=== PATIENT | female | born 1930 | race Caucasian/White ===

== ENCOUNTER 2016-06-25 09:48 | Day surgery (SDC) | payer MEDICARE, OTHER ==
[~2016-06-25] VITALS: Ht 162.6 cm; Wt 69.0 kg
[~2016-06-25 09:48] MED LIST: HYDR25TA4 PO; LOSA100T3 PO; POTA20TA16 PO; Sodium Chloride LOK Flush 10 mL Syringe IV PRN; fentaNYL-PF 50 mCg/mL 2 mL Inj IVPUSH PRN
[2016-06-25 10:00] VITALS: BP 159/70; PULSE 72; RESP 16; O2SAT 95
[2016-06-25] MEDS: 0.9% Sodium Chloride 1,000 ML IV SCH ×2 (10:05→10:22)
[2016-06-25 11:10] VITALS: BP 115/49; PULSE 62; RESP 16; O2SAT 98
[2016-06-25 11:12] VITALS: BP 133/74; PULSE 67; RESP 16; O2SAT 100
--- NOTE | 2016-06-25 11:24 | ENDO ---
[address] [address] ENDOSCOPY PROCEDURE PATIENT: WILLIAM GARCÍA : 1930 MR#: [id number] ADMIT: 06/25/2016 JOB ID: [id number] DATE: 06/25/2016 PROCEDURE: Colonoscopy. INDICATIONS: Patient with a history of colon cancer and has had a colo-colo anastomosis in the sigmoid area. Previously, she had a stenosis there that we dilated, but despite the dilation, we were not able to pass the pediatric colonoscope. Therefore, at her prior colonoscopy, standard upper endoscope was then used. ASA CLASSIFICATION: II MALLAMPATI SCORE: 2 MEDICATIONS: Versed 4 mg, fentanyl 100 mcg. INSTRUMENTS USED: PCF-H190L, as well as a GIF-H180J. PREP QUALITY: Fair. PROCEDURE DETAILS: After informed consent was obtained, the patient was brought to the GI suite, where she was placed on oxygen via nasal cannula and monitored with continuous pulse oximeter, telemetry, and blood pressure monitoring. A time-out was performed. Then, she was placed in a left lateral decubitus position, and medications were administered for sedation. Digital rectal exam was performed which was unremarkable. The pediatric colonoscope was then inserted into the rectum and advanced to approximately 15 cm, where there was evidence of a colo-colo anastomosis. We met resistance at the anastomosis and was unable to advance the pediatric colonoscope. At this point, using TTS balloons, the anastomosis was dilated sequentially starting at 10 mm up to 13.5 mm. Following dilation to 13.5 mm, we then again attempted to traverse the anastomosis with the pediatric colonoscope. However, this was unsuccessful. At this point, I elected to use an upper endoscope to complete the colonoscopy. The upper endoscope was then inserted into the rectum and advanced without difficulty to the cecum, which was identified by the presence of the ileocecal valve and appendiceal orifice. Once the cecum was reached, the colonoscope was withdrawn back into the rectum as the mucosa and lumen were examined. In the rectum, retroflexion was performed. Following retroflexion, remaining air in the rectum was suctioned, and procedure was completed. FINDINGS: 1. In the ascending colon, there was an approximately 4-5 mm sessile polyp that was removed with a cold snare. 2. Anastomosis at approximately 15 cm that was dilated from 10 mm to 13.5 mm. IMPRESSION: 1. Ascending colon polyp. 2. Anastomotic stenosis. RECOMMENDATIONS: Follow up in GI clinic as needed. As patient has no complaints with regards to her anastomotic stenosis, will not pursue further dilation of the stenosis at this time. The patient knows to contact my office if she should began having symptoms. COMPLICATIONS: None. ESTIMATED BLOOD LOSS: Less than 5 mL.
--- NOTE | 2016-06-26 17:01 | PATH ---
SURGICAL PATHOLOGY Attending Physician:Howard Lucero CASE STATUS: Signed Out PATIENT NAME: WILLIAM GARCÍA PID: [id number] : 1930 DATE COLLECTED:06/25/2016 19:53 SPECIMEN: Colon, Biopsy CLINICAL HISTORY: 1). ASCENDING COLON POLYP FINAL DIAGNOSIS: Ascending Colon, Polyp, Biopsy: Multiple portions (approximately 5) of sessile serrated adenoma. Three portions of colorectal mucosa with no diagnostic abnormality. ICD10: K63.5 GROSS DESCRIPTION: The specimen is received in one formalin filled container labeled with the patient's name, sublabeled "ascending colon polyp" and consists of multiple portions of tissue which aggregate to 0.3 x 0.3 x 0.2 CM. The specimen is entirely submitted in one cassette. 06/25/2016 [facility] ICD-9 CODES: CPT CODES: 1: 32096 Electronically Signed Out Lolita Bryan MD [facility] [address], [place] [address] Technical component performed at [facility], [facility] [address], [address]
== END 2016-06-25 23:59 | disposition home or self-care (01) ==
LOC: END 09:48
PROVIDERS: ATTEND Internal Medicine Gastroenterology
DX: Z12.11 Encounter for screening for malignant neoplasm of colon (principal); D12.2 Benign neoplasm of ascending colon; K63.89 Other specified diseases of intestine; Z85.038 Personal history of other malignant neoplasm of large intestine; I10 Essential (primary) hypertension; E78.5 Hyperlipidemia, unspecified
CPT/HCPCS: 45385; 45386; 99153; G0500; J2250; J3010; J7030